=== PATIENT | male | born 1935 | race Caucasian/White ===

== ENCOUNTER → 2016-05-21 | Outpatient (CLI) | payer OTHER | LOC: BRMIMAGING 10:17 | PROVIDERS: ATTEND Internal Medicine Rheumatology | DX: Z13.820 Encounter for screening for osteoporosis (principal); M85.80 Other specified disorders of bone density and structure, unspecified site; Z96.643 Presence of artificial hip joint, bilateral ==

== ENCOUNTER 2016-09-20 10:02 | Observation (INO) | payer OTHER ==
--- NOTE | 2016-09-20 10:32 | EDPHY ---
H & P Time Seen by Provider: 09/20/16 10:25 HPI/ROS: CHIEF COMPLAINT: Confusion HISTORY OF PRESENT ILLNESS: When the got out of the shower today at 8:30 a.m. the patient was confused and said he is having trouble with his memory. She last saw him normal at 9:00 p.m.. She says he was having trouble remembering where he was and what happened and did not know his age. Patient says he is confused and does not feel like his brain is working normally. This is not associated with headache or ataxia or weakness or numbness of extremities. Further history and review of systems is limited by the patient's altered mental status. REVIEW OF SYSTEMS: Eye: no change in vision ENT: no sore throat Cardiac: no chest pain or syncope Pulmonary: no cough or SOB Abdomen: no vomiting, diarrhea, abdominal pain Musculoskeletal: no back pain Skin: no rash Neuro: no headache Constitutional: no fever : no urinary symptoms A comprehensive 10 point review of systems is otherwise negative aside from elements mentioned in the history of present illness. PAST MEDICAL HISTORY: Includes hypothyroid, prostatic hypertrophy, TIA, GERD, glaucoma. Cholecystectomy and multiple orthopedic surgeries Social history: , no alcohol General Appearance: Alert and conversant, cooperative. Eyes: No scleral icterus. ENT, Mouth: Normal mucous membranes. Respiratory: Normal respiratory effort, breath sounds equal, lungs are clear to auscultation. Cardiovascular: Regular rate and rhythm. Gastrointestinal: Abdomen is soft and non tender. Neurological: Alert, does not know his age. Normally conversant. Face symmetric, normal movement and sensation in all extremities. Cannot remember how he injured his left index finger. Skin: Warm and dry, no rashes. Musculoskeletal: Previous amputation of partial left index finger. Psychiatric: Not agitated. Emergency Department course/MDM: Last known to be normal by at 2100 yesterday. Not made an acute stroke alert because it has been more than 12 hours since his last known normal. Discussed with Roger Maciel 1040am; agrees no stroke alert, CT angio, if negative for large vessel occlusion [facility]8: Negative CT head per Rebekah. Negative angiography. Admission to hospitalist service for evaluation of confusion, Neurology consultation. Does not appear to have signs or symptoms of acute infection. Smoking Status: Never smoked Constitutional: Initial Vital Signs Temperature (C) 36.4 C 09/20/16 10:06 Heart Rate 70 09/20/16 10:06 Respiratory Rate 17 09/20/16 10:06 Blood Pressure 187/81 H 09/20/16 10:06 O2 Sat (%) 96 09/20/16 10:06 O2 Delivery Mode Room Air Allergies/Adverse Reactions: No Known Allergies Allergy (Verified 09/20/16 10:06) Home Medications: Medication Instructions Recorded Herbals/Supplements -Info Only 1 each PO AD 03/31/13 Latanoprost 0.005% [Xalatan 0.005% 1 drops EACHEYE HS 03/31/13 (*)] Levothyroxine [Synthroid 50 mcg 50 mcg PO DAILY06 03/31/13 (*)] Tamsulosin HCl [Flomax 0.4 MG (*)] 0.4 mg PO DAILY 03/31/13 Cholecalciferol Vit D3 [Vitamin D3 2,000 units PO DAILY 02/19/16 2000 units tab (OTC)] Ferrous Sulfate [Ferrous Sulf 325 325 mg PO DAILY 09/20/16 MG (*)] Multivitamins [Multivitamin (*)] 1 each PO DAILY 09/20/16 Pantoprazole Sodium [Protonix 40mg 40 mg PO DAILY 09/20/16 (*)] Medical Decision Making - Diagnostics EKG Interpretation: 12-lead EKG interpreted by me; official reading is in trace master. My interpretation is rate 71, sinus rhythm, no ischemic changes, normal intervals Imaging Results: Imaging Impressions Head CT 09/20/16 10:32 Impression: Negative. No acute intracranial hemorrhage or evidence of ischemia. Findings discussed with Emergency Department physician, Juan Diego Osuna on 2016 at 11:49 a.m. Head CTA 09/20/16 10:32 Impression: 1. Normal intracranial arterial circulation. No evidence of embolic disease or aneurysm. 2. Patent venous system. Findings discussed with Emergency Department physicianJuan Diego on 2016 at 11:55 a.m. Neck CTA 09/20/16 10:32 Impression: 1. Widely patent carotid and vertebral arteries. No dissection, occlusion, or hemodynamically significant stenosis. 2. Mild bilateral carotid plaque resulting in less than 20% stenosis is unchanged since 2013. Findings discussed with Emergency Department physician, Juan Diego Osuna, at 1155 hours September 20, 2016. Measurement of carotid stenosis is based on the residual internal carotid diameter with [place] Symptomatic Carotid Endarterectomy Trial (NASCET) based stenosis levels. Differential Diagnosis: Differential considered including but not limited to metabolic, infectious such as UTI or pneumonia, seizure, transient global amnesia, ischemic stroke, [employer] infection, medication or drug reaction. Consult/Admit Bed Type: [place] [id number], [facility] 1242 - Data Points Laboratory Results: Laboratory Results 09/20/16 10:20 09/20/16 10:20 09/20/16 09/20/16 09/20/16 10:22 10:20 10:20 WBC RBC Hgb POC Hgb 18.0 gm/dL H gm/dL (13.7-17.5) Hct POC Hct 53 % H % (40-51) MCV MCH MCHC RDW Plt Count MPV Neut % (Auto) Lymph % (Auto) [place] % (Auto) Eos % (Auto) Baso % (Auto) Nucleat RBC Rel Count Absolute Neuts (auto) Absolute Lymphs (auto) Absolute Monos (auto) Absolute Eos (auto) Absolute Basos (auto) Absolute Nucleated RBC Immature Gran % Immature Gran # Atypical Lymphocytes Platelet Estimate Elliptocytes PT 13.4 SEC SEC (12.0-15.0) INR 1.03 (0.83-1.16) POC Sodium 142 mEq/L mEq/L (134-144) Sodium 144 mEq/L mEq/L (134-144) POC Potassium 4.3 mEq/L mEq/L (3.3-5.0) Potassium 4.6 mEq/L mEq/L (3.5-5.2) POC Chloride 104 mEq/L mEq/L (97-110) Chloride 109 mEq/L mEq/L (97-110) Carbon Dioxide 22 mEq/l mEq/l (22-31) Anion Gap 13 mEq/L mEq/L (8-16) POC BUN 17 mg/dL mg/dL (7-23) BUN 16 mg/dL mg/dL (7-23) Creatinine 1.1 mg/dL mg/dL (0.7-1.3) POC Creatinine 1.1 mg/dL mg/dL (0.7-1.3) Estimated GFR > 60 Glucose 105 mg/dL H mg/dL (70-100) POC Glucose 111 mg/dL H mg/dL (70-100) Calcium 9.6 mg/dL mg/dL (8.5-10.4) Troponin I < 0.012 ng/mL ng/mL (0-0.034) 09/20/16 10:20 WBC 6.03 10^3/uL 10^3/uL (3.80-9.50) RBC 5.70 10^6/uL 10^6/uL (4.40-6.38) Hgb 16.9 g/dL g/dL (13.7-17.5) POC Hgb Hct 49.0 % % (40.0-51.0) POC Hct MCV 86.0 fL fL (81.5-99.8) MCH 29.6 pg pg (27.9-34.1) MCHC 34.5 g/dL g/dL (32.4-36.7) RDW TNP Plt Count 133 10^3/uL L 10^3/uL (150-400) MPV TNP Neut % (Auto) 77.6 % H % (39.3-74.2) Lymph % (Auto) 15.3 % % (15.0-45.0) [place] % (Auto) 4.3 % L % (4.5-13.0) Eos % (Auto) 1.7 % % (0.6-7.6) Baso % (Auto) 0.8 % % (0.3-1.7) Nucleat RBC Rel Count 0.0 % % (0.0-0.2) Absolute Neuts (auto) 4.68 10^3/uL 10^3/uL (1.70-6.50) Absolute Lymphs (auto) 0.92 10^3/uL L 10^3/uL (1.00-3.00) Absolute Monos (auto) 0.26 10^3/uL L 10^3/uL (0.30-0.80) Absolute Eos (auto) 0.10 10^3/uL 10^3/uL (0.03-0.40) Absolute Basos (auto) 0.05 10^3/uL 10^3/uL (0.02-0.10) Absolute Nucleated RBC 0.00 10^3/uL 10^3/uL (0-0.01) Immature Gran % 0.3 % % (0.0-1.1) Immature Gran # 0.02 10^3/uL 10^3/uL (0.00-0.10) Atypical Lymphocytes 1+ H Platelet Estimate DECREASED L (ADEQ) Elliptocytes 1+ H PT INR POC Sodium Sodium POC Potassium Potassium POC Chloride Chloride Carbon Dioxide Anion Gap POC BUN BUN Creatinine POC Creatinine Estimated GFR Glucose POC Glucose Calcium Troponin I Point of Care Test Results: 09/20/16 10:22 POC Sodium 142 POC Potassium 4.3 POC Chloride 104 POC BUN 17 POC Creatinine 1.1 POC Glucose 111 H Departure - Departure Disposition: [facility] Inpatient Acute Clinical Impression: Acute confusion Condition: Good
--- NOTE | 2016-09-20 10:33 | CPEKG ---
Heart Rate: 71 RR Interval: 845 P-R Interval: 216 QRSD Interval: 78 QT Interval: 364 QTC Interval: 396 P [place]: 36 QRS [place]: -1 T Wave [place]: 37 EKG Severity - NORMAL ECG - EKG Impression: SINUS RHYTHM Electronically Signed By: Juan Diego Osuna 20-Sep-2016 16:06:13
[2016-09-20] MEDS ORDERED: IOPAMIDOL (ISOVUE 370) 100 ML BTL IV ONE (10:43)
[2016-09-20 10:47] LABS: ANION GAP 13 mEq/L (8-16); CALCIUM 9.6 mg/dL (8.5-10.4); CARBON DIOXIDE 22 mEq/l (22-31); CHLORIDE 109 mEq/L (97-110); CREATININE 1.1 mg/dL (0.7-1.3); GLOMERULAR FILTRATION RATE > 60; GLUCOSE 105 mg/dL (70-100); POTASSIUM 4.6 mEq/L (3.5-5.2); SODIUM 144 mEq/L (134-144)
[2016-09-20 10:52] LABS: INR 1.03 (0.83-1.16); PROTIME(PATIENT) 13.4 SEC (12.0-15.0)
[2016-09-20 10:59] LABS: TROPONIN I < 0.012 ng/mL (0-0.034)
[2016-09-20 11:05] LABS: % IMMATURE GRANULYOCYTES 0.3 % (0.0-1.1); ABSOLUTE IMMATURE GRANULOCYTES 0.02 10^3/uL (0.00-0.10); ADD DIFF? NO; ATYPICAL LYMPHOCYTE FLAG 0 (0-99); HEMOGLOBIN 16.9 g/dL (13.7-17.5); LEFT SHIFT FLG 0 (0-99); LIPEMIA HEMOLYSIS FLAG 90 (0-99); MEAN CELL HEMOGLOBIN 29.6 pg (27.9-34.1); MEAN CELL HEMOGLOBIN CONCENTR. 34.5 g/dL (32.4-36.7); PLATELET CLUMPS FLAG 40 (0-99); PLATELET COUNT 133 10^3/uL (150-400)
[2016-09-20 11:07] LABS: ADD MORPH? NO
[2016-09-20 11:08] LABS: ADD SCAN? YES
[2016-09-20 12:11] LABS: FRAGMENT RBC FLAG 0 (0-99); SCAN NEGATIVE
[2016-09-20 13:32] LABS: COLOR YELLOW; LEUKOCYTE ESTERASE,URINE NEGATIVE (NEGATIVE); NITRITE,URINE NEGATIVE (NEGATIVE)
[2016-09-20] MEDS ORDERED: ONDANSETRON 4 MG/2 ML VIAL IVP PRN (13:50)
[2016-09-20] MEDS ORDERED: ONDANSETRON DISINTEGRATING 4 MG TAB PO PRN (13:50)
[2016-09-20] MEDS ORDERED: ACETAMINOPHEN 325 MG TAB PO PRN (13:50)
[2016-09-20 14:46] LABS: PLATELET ESTIMATE DECREASED (ADEQ)
[2016-09-20 14:49] LABS: ELLIPTOCYTES 1+
--- NOTE | 2016-09-20 15:37 | PDGENHP ---
History and Physical - Chief Complaint Acute encephalopathy - History of Present Illness primary care provider: Dr. Lam Bateman Primary fresh foods clerk: Dr. Deejay Tapia History of present illness: 81-year-old male presenting with acute encephalopathy characterized as self-reported confusion and memory impairment with onset of symptoms noted at 8:30 a.m. when the patient notified his . His reports that he was last seen in his usual state at 9:00 p.m. on the evening prior to this presentation. Duration of patient's confusion has been persistent since the noted onset at the present time the patient is only able to recall vague events the past couple hours. He also only has vague recollection of the events on the day prior to this presentation. He does feel fairly confident that he has not been recently experiencing any infectious symptoms and his oral intake of solids and liquids has been good. He denies any recent unusual ingested since or toxic substances. He does have some notable associated anxiety and dis-ease with his poor recollection of recent events. He reports that he experienced a similar episode of symptoms approximately 15 years ago and he believes that that was a TIA. Also had event preceding that approximately 25 years ago similar character. He otherwise denies any porsha paresthesias or porsha paresis, denies any headache or visual changes. History Information - Allergies/Home Medication List Allergies/Adverse Reactions: No Known Allergies Allergy (Verified 09/20/16 10:06) Home Medications: Herbals/Supplements -Info Only 1 each PO AD 03/31/13 [Last Taken Unknown] Latanoprost 0.005% [Xalatan 0.005% (*)] 1 drops EACHEYE HS 03/31/13 [Last Taken 02/18/16] Levothyroxine [Synthroid 50 mcg (*)] 50 mcg PO DAILY06 03/31/13 [Last Taken Unknown] Tamsulosin HCl [Flomax 0.4 MG (*)] 0.4 mg PO DAILY 03/31/13 [Last Taken 02/18/16 ] Cholecalciferol Vit D3 [Vitamin D3 2000 units tab (OTC)] 2,000 units PO DAILY [Last Taken Unknown] Ferrous Sulfate [Ferrous Sulf 325 MG (*)] 325 mg PO DAILY 09/20/16 [Last Taken Unknown] Multivitamins [Multivitamin (*)] 1 each PO DAILY 09/20/16 [Last Taken Unknown] Pantoprazole Sodium [Protonix 40mg (*)] 40 mg PO DAILY 09/20/16 [Last Taken Unknown] I have personally reviewed and updated: family history, medical history, social history, surgical history - Past Medical History Additional medical history: BPH. Osteoarthritis. Moderate aortic insufficiency. Dilated ascending aorta approximately 4.6 cm. Neurologic episode of unclear etiology in 2013 - Surgical History Additional surgical history: ORIF humerus January 2016. Cholecystectomy. Hernia repair. Bilateral femur surgery. Left total hip replacement. Right knee surgery - Family History Additional family history: no recent sick family contacts, his mother of malignancy, his father with Parkinson's disease - Social History Smoking Status: Never smoked Alcohol Use: Rarely Drug Use: None Additional social history: high cognitively functioning individual, worked for [employer], currently resides near [facility] Review of Systems ROS: 10pt was reviewed & negative except for what was stated in HPI & below Neurological: Reports: other ( confusion, memory impairment) Physical Exam Temp Pulse Resp BP Pulse Ox 36.4 C 64 18 132/62 H 96 09/20/16 14:36 09/20/16 14:36 09/20/16 14:36 09/20/16 14:36 09/20/16 14:36 Constitutional: no apparent distress, appears nourished, not in pain Eyes: PERRL, anicteric sclera, EOMI Ears, Nose, Mouth, Throat: moist mucous membranes, hearing normal, ears appear normal, no oral mucosal ulcers Cardiovascular: regular rate and rhythym, no murmur, rub, or gallop, No edema Respiratory: no respiratory distress, no rales or rhonchi, clear to auscultation Gastrointestinal: normoactive bowel sounds, soft, non-tender abdomen, no palpable masses Skin: warm, normal color, no rashes or abrasions, no fluctuance, no induration, No mottled Neurologic: AAOx3, sensation intact bilaterally, CN II-XII Intact, No weakness ( motor strength 5/5 bilateral upper and lower extremities) Psychiatric: not anxious, not encephalopathic, poor memory ( with significant anterograde amnesia consisting of at least 6 hours as well as a retrograde component consisting of approximately 24 hours), No agitated Lab Data & Imaging Review 09/20/16 10:20 09/20/16 10:20 WBC 6.03 10^3/uL (3.80-9.50) 09/20/16 10:20 RBC 5.70 10^6/uL (4.40-6.38) 09/20/16 10:20 Hgb 16.9 g/dL (13.7-17.5) 09/20/16 10:20 POC Hgb 18.0 gm/dL (13.7-17.5) H 09/20/16 10:22 Hct 49.0 % (40.0-51.0) 09/20/16 10:20 POC Hct 53 % (40-51) H 09/20/16 10:22 MCV 86.0 fL (81.5-99.8) 09/20/16 10:20 MCH 29.6 pg (27.9-34.1) 09/20/16 10:20 MCHC 34.5 g/dL (32.4-36.7) 09/20/16 10:20 RDW TNP 09/20/16 10:20 Plt Count 133 10^3/uL (150-400) L 09/20/16 10:20 MPV TNP 09/20/16 10:20 Neut % (Auto) 77.6 % (39.3-74.2) H 09/20/16 10:20 Lymph % (Auto) 15.3 % (15.0-45.0) 09/20/16 10:20 [place] % (Auto) 4.3 % (4.5-13.0) L 09/20/16 10:20 Eos % (Auto) 1.7 % (0.6-7.6) 09/20/16 10:20 Baso % (Auto) 0.8 % (0.3-1.7) 09/20/16 10:20 Nucleat RBC Rel Count 0.0 % (0.0-0.2) 09/20/16 10:20 Absolute Neuts (auto) 4.68 10^3/uL (1.70-6.50) 09/20/16 10:20 Absolute Lymphs (auto) 0.92 10^3/uL (1.00-3.00) L 09/20/16 10:20 Absolute Monos (auto) 0.26 10^3/uL (0.30-0.80) L 09/20/16 10:20 Absolute Eos (auto) 0.10 10^3/uL (0.03-0.40) 09/20/16 10:20 Absolute Basos (auto) 0.05 10^3/uL (0.02-0.10) 09/20/16 10:20 Absolute Nucleated RBC 0.00 10^3/uL (0-0.01) 09/20/16 10:20 Immature Gran % 0.3 % (0.0-1.1) 09/20/16 10:20 Immature Gran # 0.02 10^3/uL (0.00-0.10) 09/20/16 10:20 Atypical Lymphocytes 1+ H 09/20/16 10:20 Platelet Estimate DECREASED (ADEQ) L 09/20/16 10:20 Elliptocytes 1+ H 09/20/16 10:20 PT 13.4 SEC (12.0-15.0) 09/20/16 10:20 INR 1.03 (0.83-1.16) 09/20/16 10:20 POC Sodium 142 mEq/L (134-144) 09/20/16 10:22 Sodium 144 mEq/L (134-144) 09/20/16 10:20 POC Potassium 4.3 mEq/L (3.3-5.0) 09/20/16 10:22 Potassium 4.6 mEq/L (3.5-5.2) 09/20/16 10:20 POC Chloride 104 mEq/L (97-110) 09/20/16 10:22 Chloride 109 mEq/L (97-110) 09/20/16 10:20 Carbon Dioxide 22 mEq/l (22-31) 09/20/16 10:20 Anion Gap 13 mEq/L (8-16) 09/20/16 10:20 POC BUN 17 mg/dL (7-23) 09/20/16 10:22 BUN 16 mg/dL (7-23) 09/20/16 10:20 Creatinine 1.1 mg/dL (0.7-1.3) 09/20/16 10:20 POC Creatinine 1.1 mg/dL (0.7-1.3) 09/20/16 10:22 Estimated GFR > 60 09/20/16 10:20 Glucose 105 mg/dL (70-100) H 09/20/16 10:20 POC Glucose 111 mg/dL (70-100) H 09/20/16 10:22 Calcium 9.6 mg/dL (8.5-10.4) 09/20/16 10:20 Troponin I < 0.012 ng/mL (0-0.034) 09/20/16 10:20 Urine Color YELLOW 09/20/16 13:15 Urine Appearance CLEAR 09/20/16 13:15 Urine pH 5.0 (5.0-7.5) 09/20/16 13:15 Ur Specific [place] 1.035 (1.002-1.030) H 09/20/16 13:15 Urine Protein NEGATIVE (NEGATIVE) 09/20/16 13:15 Urine Ketones NEGATIVE (NEGATIVE) 09/20/16 13:15 Urine Blood 1+ (NEGATIVE) H 09/20/16 13:15 Urine Nitrate NEGATIVE (NEGATIVE) 09/20/16 13:15 Urine Bilirubin NEGATIVE (NEGATIVE) 09/20/16 13:15 Urine Urobilinogen NEGATIVE EU (0.2-1.0) 09/20/16 13:15 Ur Leukocyte Esterase NEGATIVE (NEGATIVE) 09/20/16 13:15 Urine RBC 1-3 /hpf (0-3) 09/20/16 13:15 Urine WBC 1-3 /hpf (0-3) 09/20/16 13:15 Ur Epithelial Cells NONE SEEN /lpf (NONE-1+) 09/20/16 13:15 Urine Glucose NEGATIVE (NEGATIVE) 09/20/16 13:15 Visualized and Interpreted EKG results: Yes EKG Interpretation: Positive for: other ( normal sinus rhythm) Assessment & Plan Assessment: 81-year-old male presenting with acute encephalopathy Plan: 1. Encephalopathy. Acute, new problem this provider, further workup is indicated. Unclear etiology, may be secondary to transient ischemic attack versus transient global amnesia, resulting in components of anterograde and retrograde amnesia -the patient has returned to his baseline level of cognitive functioning at this time, but is unclear whether he will actually recall the present encounter and will continue to experience anterograde amnesia moving forward, requires observation and reassessment -given the possibility of transient ischemic attack and what would be perceived as persistent symptoms, I would recommend further workup with telemetry, echocardiogram, MRI -CT angiogram demonstrates no large vessel occlusion in the head or neck -reviewed outside records from 05/24/2013, neurology consultation by Dr. Edmond Landry, reports that patient's EEG was essentially normal and that the etiology of patient's neurologic episode was unclear, not definitively a TIA but also no other identifiable pathology -will empirically upgrade patient's aspirin 162 mg to aspirin 325 mg daily -get lipid panel, get hemoglobin A1c -continue neuro checks, get Neurology consultation in a.m., ordered 2. BPH. Chronic, continue home medication Diet. Cardiac after swallow eval Prophylaxis. High risk patient, SCDs, the pharmacologic after MRI to ensure no CVA Code. Do not resuscitate per patient, his his MD POA Disposition. Anticipated discharge 09/21/2016, pending further workup and reassessment as outlined above. If patient has significant changes and requires greater than 2 midnights of inpatient hospitalization for further workup and treatment for reasonable medical necessity, he will be upgraded to inpatient status tomorrow by Elina Baron. I have discussed this patient with Elina Baron and received sign-out from her to evaluate this patient.
[2016-09-20] MEDS ORDERED: LATANOPROST 0.005% 2.5 ML OPHT DROPS EACHEYE SCH (21:00)
[2016-09-21 05:43] LABS: % IMMATURE GRANULYOCYTES 0.2 % (0.0-1.1); ABSOLUTE IMMATURE GRANULOCYTES 0.01 10^3/uL (0.00-0.10); ADD DIFF? NO; ADD MORPH? YES; ADD SCAN? NO; ATYPICAL LYMPHOCYTE FLAG 10 (0-99); FRAGMENT RBC FLAG 20 (0-99); HEMATOCRIT 43.5 % (40.0-51.0); HEMOGLOBIN 15.2 g/dL (13.7-17.5); LEFT SHIFT FLG 0 (0-99); LIPEMIA HEMOLYSIS FLAG 90 (0-99); MEAN CELL HEMOGLOBIN CONCENTR. 34.9 g/dL (32.4-36.7); PLATELET CLUMPS FLAG 0 (0-99); PLATELET COUNT 120 10^3/uL (150-400); RED BLOOD CELL COUNT 5.06 10^6/uL (4.40-6.38)
[2016-09-21 05:46] LABS: RED CELL DISTRIBUTION WIDTH 24.8 % (11.5-15.2)
[2016-09-21 05:53] LABS: ALANINE AMINOTRANSFERASE 26 IU/L (21-72); ALBUMIN 3.7 g/dL (3.5-5.0); ALKALINE PHOSPHATASE 48 IU/L (38-126); ANION GAP 10 mEq/L (8-16); ASPARTATE AMINOTRANSFERASE 22 IU/L (17-59); BILIRUBIN,TOTAL 1.8 mg/dL (0.1-1.4); CALCIUM 9.3 mg/dL (8.5-10.4); CARBON DIOXIDE 24 mEq/l (22-31); CHLORIDE 110 mEq/L (97-110); CHOLESTEROL 162 mg/dL (140-220); CHOLESTEROL/HDL RATIO 3.86 RATIO (1.00-4.97); CREATININE 1.1 mg/dL (0.7-1.3); GLOMERULAR FILTRATION RATE > 60; GLUCOSE 88 mg/dL (70-100); HIGH DENSITY LIPOPROTEIN 42 mg/dL (40-65); LDL/HDL RATIO 2.36 RATIO (1.00-3.64); LOW DENSITY LIPOPROTEIN 99 mg/dL (80-100); NON-HIGH DENSITY LIPOPROTEIN 120 mg/dL (90-129); POTASSIUM 4.3 mEq/L (3.5-5.2); SODIUM 144 mEq/L (134-144); TOTAL PROTEIN 5.9 g/dL (6.3-8.2); TRIGLYCERIDE 109 mg/dL (40-150); VERY LOW DENSITY LIPOPROTEINS 21 mg/dL (8-25)
[2016-09-21] MEDS ORDERED: LEVOTHYROXINE 50 MCG TAB PO SCH (06:00)
[2016-09-21 06:20] LABS: ELLIPTOCYTES 1+; MACROCYTES 1+; MICROCYTES 1+; PLATELET ESTIMATE DECREASED (ADEQ)
[2016-09-21] MEDS ORDERED: MULTIVITAMINS 1 EACH TAB PO SCH (09:00)
[2016-09-21] MEDS ORDERED: FERROUS SULFATE 325 MG TAB PO SCH (09:00)
[2016-09-21] MEDS ORDERED: CHOLECALCIFEROL VIT D3 2,000 UNITS TAB/CAP PO SCH (09:00)
[2016-09-21] MEDS ORDERED: ASPIRIN 325 MG TAB PO SCH (09:00)
[2016-09-21] MEDS ORDERED: TAMSULOSIN HCL 0.4 MG CAP PO SCH (09:00)
[2016-09-21] MEDS ORDERED: PANTOPRAZOLE SODIUM 40 MG TAB PO SCH (09:00)
--- NOTE | 2016-09-21 09:23 | PDCONSULT ---
Campground Cle[employer] Attendant Note: HOSPITAL NEUROLOGY CONSULT REQUESTING: Oscar Diaz DO REASON: spell of impaired memory HPI: This is an 81 year old right-handed man who was admitted through the ED yesterday due to a transient episode of profound amnesia. Patient is amnestic of the events, so history is obtained from the record. No family at bedside today. Patient was in his usual state of health the night prior to admission. He went to bed around 2100. He awoke the next morning and his found him at 0830 to be quite confused. Specifically, he was not sure where he was, was not sure of his age, and seemed to be lost in his own environment. In discussion with the ED provider, he was also amnestic of his 's name. He was brought to our ED. He states he recalls events starting around 1300 yesterday while in the ED. There was no indication of any weakness, speech/language disturbance, sensory loss, visual disturbance, gait disturbance. He was not indicating any CENTENO. No adventitial movements were noted. He seemed to otherwise be functioning normally, with exception of profound amnesia. He has no medication changes, toxic ingestions or recent illnesses. He notes a similar spell happened about 15 years ago - he states he was walking his dog and then abruptly became amnestic of his dog's name and other personal details. This spell resolved spontaneously as well. He underwent a CTA head/neck in the ED which showed normal intracranial circulation and less than 20% stenosis of the BICAs and patent posterior circulation. An MRI brain wo was done after he recovered, which showed no acute findings, but some [id number] chronic microvascular ischemic changes in the subcortical/periventricular white matter and some global volume loss. The mesial temporal structures had no signal changes. He states he feels back to his baseline today, but is completely amnestic of waking up yesterday and only recalls events after getting to the ED. ROS: As per the HPI, otherwise a complete 12 point ROS was performed and is negative ALLERGIES AND MEDS: As recorded in the EMR - reviewed and reconciled PFSH: As per the intake H&P by Dr. Diaz from yesterday EXAM: VS reviewed in EMR GEN: WDWN sitting in NAD HEENT: NCAT, sclera anicteric, conjunctiva not injected, MMM, oropharynx clear, no scalp tenderness NECK: supple, nontender, no meningismus CV: RRR s1 s2 wo m/r/c/g. Carotid pulses 2+ wo bruit NEURO: MS: awake, alert, oriented to all spheres. Speech nondysarthric. No language disturbance. Follows commands. Attends to both sides. Recent/remote memory grossly intact. Mood euthymic. Good fund of knowledge. CN: pupils 4mm round and reactive. Fundi with sharp discs. VFF. Primary gaze centered. Full ocular motility. Facial sensation preserved. Face symmetric. Hearing grossly intact to finger rub. Palatoglossal movements intact. Shoulder shrug and head turn strong. MOTOR: normal bulk/tone. No adventitial movements. Full power throughout. SENSORY: intact LT/PP throughout and symmetric. No extinction. COORD: no ataxia FN/HS. Marcus preserved. Romberg neg. REFLEX: plantars down. No clonus. DTRS absent. GAIT: deferred to PT safety eval DATA REVIEW: Labs reviewed in EMR PERSONALLY INTERPRETED RESULTS AND DATA: CTA head/neck and MRI brain wo personally reviewed as per the HPI IMPRESSION AND RECOMMENDATIONS: // SUSPECT TRANSIENT GLOBAL AMNESIA Patient with abrupt onset of profound global amnesia for a brief period of time , self limiting in nature. He has a normal neuro exam and unremarkable neuroimaging. 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 He interestingly may have suffered a similar event about 15 years ago. Unknown what the underlying etiology of this process may be, but it is thought to perhaps have a vascular and electrical component given the often found bilateral mesial temporal MRI signal changes of mild restricted diffusion found in some cases mainly during the symptomatic phase. He has had a reported normal EEG in the past. Would recommend he go back up to his usual dose of ASA, which was 162 mg daily ( he had decreased to 81mg about 10 days ago for a colonoscopy). Stroke education provided - namely activating EMS for any abrupt onset neurologic deficit (though this was not a stroke, and I don't think this was a TIA). He can be discharged from a neurologic perspective.
[2016-09-21 09:39] LABS: HEMOGLOBIN A1C 4.7 % (4.0-6.0)
--- NOTE | 2016-09-21 10:11 | ECHO ---
[id number] + + [address] : : [place] [address] : : [phone] + + Adult Echocardiographic Report + -------+ :Name: SANA CURIEL PStudy Date: 09/21/2016 08:03 AM BP: 128/68 mmH g : : Hospital Admission Number: [id number] Locati on: 396: :: 1935 Gender: Male Height: 73 in : :Age: 81 yrs Race: WH Weight: 200 lb : :Reason For Study: source of emboli : : BSA: 2.2 meter s2 : :History: tia : + -------+ MMode/2D Measurements \T\ Calculations IVSd: 1.3 cm RVDd: 3.5 cm FS: 47.6 % Ao root diam: 3.8 cm LVPWd: 1.0 cm LVIDd: 3.7 cm EDV(Teich): 56.4 ml LVIDs: 1.9 cm ESV(Teich): 11.4 ml EF(Teich): 79.9 % LVOT diam: 2.0 cm LVOT area: 3.2 cm2 Normal Measurement Values: + + :LVIDd (3.5-5.7cm) IVSd (0.6-1.1cm) LVPWd (0.6-1.1cm) Aortic Root (2.0-3.7cm)Left Atrium (1.5-4.0cm): :LV Vol(d) (76-115ml) LV Vol(s) (29-48ml) Ejec Fraction (50-65%)PV Derian (0.6- 1.2m/s) TV Derian (0.4-1.0m/s) : :MV E Derian (0.8-1.0m/s)MV A Derian (0.3-1.0m/s)LVOT Derian (0.7-1.2m/s) Asc Ao Derian ( 0.9-1.8m/s) : + + Doppler Measurements \T\ Calculations MV E max derian: Ao V2 max: AI max derian: LV V1 max: 70.1 cm/sec 147.7 cm/sec 380.8 cm/sec 97.7 cm/sec MV A max derian: Ao max PG: AI max P.1 mmHg LV V1 max P.2 cm/sec 8.7 mmHg AI dec slope: 3.8 mmHg MV E/A: 1.2 MV dec time: DIGNA(V,D): 2.1 cm2 191.0 cm/sec2 0.25 sec AI P1/2t: 583.9 msec PA V2 max: TR max derain: 81.7 cm/sec 161.6 cm/sec PA max PG: TR max P.7 mmHg 10.4 mmHg RAP systole: 5.0 mmHg RVSP(TR): 15.4 mmHg Left Ventricle The left ventricle is normal in size and function. There is mild concentric left ventricular hypertrophy. Ejection Fraction = 75%. No regional wall motion abnormalities noted. Right Ventricle The right ventricle is normal in size and function. Atria The left atrial size is normal. Right atrial size is normal. The interatrial septum is intact with no evidence for an atrial septal defect. Mitral Valve The mitral valve is normal in structure and function. There is no mitral valve stenosis. There is trace mitral regurgitation. Tricuspid Valve The tricuspid valve is normal in structure and function. There is no tricuspid stenosis. There is mild tricuspid regurgitation. Right ventricular systolic pressure is normal. Aortic Valve The aortic valve is trileaflet. Mild aortic sclerosis without stenosis. There is no aortic stenosis. Mild to moderate aortic regurgitation. Pulmonic Valve The pulmonic valve is not well visualized. Mild pulmonic valvular regurgitation. Great Vessels The aortic root is normal size. Mildly dilated ascending aorta. Pericardium/Pleural There is no pericardial effusion. Conclusion A two-dimensional transthoracic echocardiogram, with color flow Doppler was performed. There is no obvious source of embolus identified. If one is highly clinically suspected, then transesophageal echocardiography should be considered. The study was technically difficult. The left ventricle is normal in size and function. There is mild concentric left ventricular hypertrophy. Ejection Fraction = 75%. There is trace mitral regurgitation. There is mild tricuspid regurgitation. Right ventricular systolic pressure is normal. Mild to moderate aortic regurgitation. Mild pulmonic valvular regurgitation. Mildly dilated ascending aorta. Final Reading Physician: Natalie Rose signed on 09/21/2016 10:10 AM Ordering Physician: Cody Garcia Performed By: Stephanie Jimenez
[2016-09-21 11:21] VITALS: BP 109/74; PULSE 83; RESP 16; TEMP 97.9; O2SAT 96
--- NOTE | 2016-09-22 09:13 | GDS ---
[f rep st] DISCHARGE SUMMARY NEW AND ACUTE DIAGNOSIS ON THIS ADMISSION: 1. Acute encephalopathy of undetermined etiology. Possibly of vascular origin and possible transie nt ischemic attack. 2. Benign prostatic hypertrophy. On chronic medication. CHRONIC DIAGNOSIS: Benign prostatic hypertrophy. PROCEDURES: 1. Transthoracic echocardiogram showing ejection fraction of 75% with trace mitral regurgitation, m ild tricuspid regurgitation, and [id number] aortic regurgitation. 2. Brain MRI showing normal for age. No acute infarct or hemorrhage. There was upper cervical cor d compression as described in the report. HOSPITAL COURSE: This is an 81-year-old man who was admitted through the ER because of profound amn esia. When he woke on the morning of admission, he seemed confused. His called and brought him to [facility] emergency department. He had retrograde amnesia. There was no indication of weakness, speech or language disturbance, sensory loss, visual disturbance, or gait disturbance. He had a prior history of a similar spell 15 years previously. CTA of the head and neck in the ED along with an MRI faile d to show any definitive findings. The amnesia cleared on its own. On the morning of discharge, he was alert, oriented, and showed no neurologic deficits. He continue d to have very minimal understanding of the amnesia and continued to have some retrograde amnesia, b ut he was alert and remembering the immediate events. It was recommended he go back on his usual dose of aspirin to 162 mg daily. Stroke precautions and education were provided, though we did not think this was a stroke but stroke precautions were given . He was otherwise stable, afebrile, alert and oriented, and will be discharged to home. DISCHARGE MEDICATIONS: Aspirin 162 mg daily, Synthroid 50 mcg daily, 0.005% eyedrops in e ach eye in the evening, Flomax 0.4 mg daily, herbal supplementation, vitamin D3 at 2000 Internationa l Units daily, Protonix 40 mg daily, multivitamin daily, ferrous sulfate 325 mg daily. PLAN: Patient is discharged to home accompanied by his . His condition is good. He will follo w up with Dr. Bateman in 1-2 weeks and he is getting a p.r.n. followup with Dr. Cornelio Baltazar. Time: This discharge required 40 minutes, greater than 50% to counseling aide and coordinate the gentleman' s care. Copy requested to: Dr. Bateman /[id number]/MODL
== END 2016-09-21 15:50 | disposition home or self-care (01) ==
LOC: INTOOBSV 12:56 → F3E 14:32
PROVIDERS: ADMIT Family Medicine; ATTEND Internal Medicine Pulmonary Disease
DX: G93.40 Encephalopathy, unspecified (principal); N40.0 Benign prostatic hyperplasia without lower urinary tract symptoms
CPT/HCPCS: 70450; 70496; 70498; 70551; 92523; 93005; 93306; 97161; 99285; G0378; G8978; G8979; G9168; G9169; G9170; Q9967; 82947-QW

== ENCOUNTER → 2018-06-16 | Outpatient (CLI) | payer OTHER, MEDICARE | LOC: BMCIMAGING 14:29 | PROVIDERS: ATTEND Internal Medicine Rheumatology | DX: Z13.820 Encounter for screening for osteoporosis (principal); M85.89 Other specified disorders of bone density and structure, multiple sites; Z87.81 Personal history of (healed) traumatic fracture ==